=== PATIENT | female | born 1950 | race Caucasian/White ===

== ENCOUNTER 2016-05-20 12:36 | Emergency (ER) | payer MEDICARE ==
[~2016-05-20] VITALS: Ht 160 cm; Wt 70.9 kg
[~2016-05-20 12:36] MED LIST: PROCARDIA PO; PROZ10 PO; TRAZODONE HCL50 PO
[2016-05-20 16:53] VITALS: BP 147/98
== END 2016-05-20 16:53 | disposition left against medical advice (07) ==
LOC: ED 12:36
DX: Z53.21 Procedure and treatment not carried out due to patient leaving prior to being seen by health care provider (principal)

== ENCOUNTER 2016-05-21 10:11 | Emergency (ER) | payer MEDICARE ==
[~2016-05-21] VITALS: Ht 160 cm; Wt 71.2 kg
[2016-05-21 11:57] LABS: BASOPHIL % 0.7 % (0-2); PLATELET COUNT 298 x10^3mcL (130-400)
[2016-05-21 12:02] LABS: CALCIUM 9.3 mg/dL (8.5-10.1); CARBON DIOXIDE 27.7 mmol/L (21-32); CHLORIDE SERUM 105 mmol/L (98-107); CREATININE SERUM 0.6 mg/dL (0.6-1.0); GFR1 > 60 mL/min; GLUCOSE SERUM 106 mg/dL (74-106); POTASSIUM SERUM 3.3 mmol/L (3.5-5.1); SODIUM SERUM 142 mmol/L (136-145)
[2016-05-21 12:05] LABS: UA SPECIFIC GRAVITY >=1.030 (1.005-1.035); microscopic required? YES; urine erythrocyte TRACE (NEGATIVE)
[2016-05-21 12:05] LABS: RED CELL DISTRIBUTION WIDTH 19.6 % (11.5-14.5)
[2016-05-21 12:06] LABS: ALBUMIN 3.7 g/dL (3.4-5.0); ALKALINE PHOSPHATASE 85 U/L (46-116); ALT/SGPT 13 U/L (14-59); AST/SGOT 12 U/L (15-37); BILIRUBIN TOTAL 0.58 mg/dL (0.20-1.00); TOTAL PROTEIN, SERUM 7.7 g/dL (6.4-8.2)
[2016-05-21 12:22] LABS: AMPHETAMINE QUAL UR NONE DETECTED (NEG <=1000)
[2016-05-21 14:48] VITALS: BP 145/99
== END 2016-05-21 14:48 | disposition home or self-care (01) ==
LOC: ED 10:11
PROVIDERS: Emergency Medicine
DX: F41.9 Anxiety disorder, unspecified (principal); N39.0 Urinary tract infection, site not specified; Z88.8 Allergy status to other drugs, medicaments and biological substances; Z88.5 Allergy status to narcotic agent; Z79.899 Other long term (current) drug therapy; I10 Essential (primary) hypertension; F99 Mental disorder, not otherwise specified
CPT/HCPCS: 80307; 83880; 85378

== ENCOUNTER 2016-05-31 18:03 | Emergency (ER) | payer MEDICARE ==
[~2016-05-31] VITALS: Ht 160 cm; Wt 72.1 kg
[2016-05-31 19:03] VITALS: BP 152/83
== END 2016-05-31 19:03 | disposition home or self-care (01) ==
LOC: ED 18:03
DX: F41.9 Anxiety disorder, unspecified (principal); I10 Essential (primary) hypertension; E66.9 Obesity, unspecified; I48.2 Chronic atrial fibrillation; F32.9 Major depressive disorder, single episode, unspecified; G89.29 Other chronic pain; E78.00 Pure hypercholesterolemia, unspecified; G47.00 Insomnia, unspecified; M10.9 Gout, unspecified
CPT/HCPCS: J2060

== ENCOUNTER 2016-07-31 12:48 | Emergency (ER) | payer MEDICARE ==
[2016-07-31 15:31] VITALS: BP 125/98
== END 2016-07-31 15:31 | disposition home or self-care (01) ==
LOC: ED 12:48
DX: F41.9 Anxiety disorder, unspecified (principal); G89.29 Other chronic pain; M54.5 Low back pain; I48.91 Unspecified atrial fibrillation; M25.562 Pain in left knee; G47.00 Insomnia, unspecified; I10 Essential (primary) hypertension; E78.00 Pure hypercholesterolemia, unspecified; F32.9 Major depressive disorder, single episode, unspecified; Z76.0 Encounter for issue of repeat prescription

== ENCOUNTER 2016-09-13 18:16 | Emergency (ER) | payer MEDICARE ==
[~2016-09-13] VITALS: Ht 160 cm; Wt 68.5 kg
[2016-09-13 20:52] VITALS: BP 182/94
== END 2016-09-13 20:52 | disposition home or self-care (01) ==
LOC: ED 18:16
DX: M54.41 Lumbago with sciatica, right side (principal); I10 Essential (primary) hypertension; I48.91 Unspecified atrial fibrillation; F41.9 Anxiety disorder, unspecified; Z88.6 Allergy status to analgesic agent
CPT/HCPCS: J3010; Q0162

== ENCOUNTER 2016-10-09 15:00 | Emergency (ER) | payer MEDICARE ==
[~2016-10-09] VITALS: Ht 160 cm; Wt 68.5 kg
[2016-10-09 16:49] LABS: BASOPHIL % 0.9 % (0-2); PLATELET COUNT 311 x10^3mcL (130-400)
[2016-10-09 16:56] LABS: CALCIUM 9.1 mg/dL (8.5-10.1); CARBON DIOXIDE 23.6 mmol/L (21-32); CHLORIDE SERUM 104 mmol/L (98-107); CREATININE SERUM 0.5 mg/dL (0.6-1.0); GFR1 > 60 mL/min; GLUCOSE SERUM 95 mg/dL (74-106); POTASSIUM SERUM 3.2 mmol/L (3.5-5.1); SODIUM SERUM 140 mmol/L (136-145)
[2016-10-09 17:02] LABS: ALBUMIN 3.4 g/dL (3.4-5.0); ALKALINE PHOSPHATASE 87 U/L (46-116); ALT/SGPT 25 U/L (14-59); AST/SGOT 19 U/L (15-37); BILIRUBIN TOTAL 0.59 mg/dL (0.20-1.00); TOTAL PROTEIN, SERUM 7.4 g/dL (6.4-8.2)
[2016-10-09 17:16] LABS: AMPHETAMINE QUAL UR NONE DETECTED (NEG <=1000)
[2016-10-09 17:34] LABS: rbc morphology (normal/abnorm) ABNORMAL (NORMAL)
[2016-10-09 18:01] LABS: UA SPECIFIC GRAVITY 1.015 (1.005-1.035); microscopic required? YES; urine erythrocyte NEGATIVE (NEGATIVE)
[2016-10-09 23:01] VITALS: BP 144/86
== END 2016-10-09 23:01 ==
LOC: ED 15:00
PROVIDERS: Emergency Medicine
DX: T42.4X1A Poisoning by benzodiazepines, accidental (unintentional), initial encounter (principal); F41.9 Anxiety disorder, unspecified; F32.9 Major depressive disorder, single episode, unspecified; G89.29 Other chronic pain; E78.00 Pure hypercholesterolemia, unspecified; I48.91 Unspecified atrial fibrillation; M10.9 Gout, unspecified; M19.90 Unspecified osteoarthritis, unspecified site; Z87.440 Personal history of urinary (tract) infections; Z88.5 Allergy status to narcotic agent; Z88.6 Allergy status to analgesic agent; Z88.8 Allergy status to other drugs, medicaments and biological substances; Y92.89 Other specified places as the place of occurrence of the external cause
CPT/HCPCS: G0480; J7030

== ENCOUNTER 2017-01-24 21:23 | Emergency (ER) | payer MEDICARE ==
[2017-01-24 23:54] VITALS: BP 136/86
== END 2017-01-24 23:54 | disposition home or self-care (01) ==
LOC: ED 21:23
DX: F41.9 Anxiety disorder, unspecified (principal); I10 Essential (primary) hypertension; F32.9 Major depressive disorder, single episode, unspecified; E78.00 Pure hypercholesterolemia, unspecified; G47.00 Insomnia, unspecified; M19.90 Unspecified osteoarthritis, unspecified site; I48.91 Unspecified atrial fibrillation; M54.30 Sciatica, unspecified side; G89.29 Other chronic pain; M54.9 Dorsalgia, unspecified; M25.569 Pain in unspecified knee; Z88.8 Allergy status to other drugs, medicaments and biological substances; Z88.5 Allergy status to narcotic agent
CPT/HCPCS: J1170; J2250

== ENCOUNTER 2017-01-25 22:47 | Emergency (ER) | payer MEDICARE ==
[2017-01-26 00:56] VITALS: BP 163/95
== END 2017-01-26 00:56 | disposition home or self-care (01) ==
LOC: ED 22:47
DX: F41.9 Anxiety disorder, unspecified (principal); G89.29 Other chronic pain; M54.9 Dorsalgia, unspecified; M25.562 Pain in left knee; G47.00 Insomnia, unspecified; F32.9 Major depressive disorder, single episode, unspecified; E78.00 Pure hypercholesterolemia, unspecified; M54.30 Sciatica, unspecified side; I10 Essential (primary) hypertension; I48.91 Unspecified atrial fibrillation; M19.90 Unspecified osteoarthritis, unspecified site; Z88.5 Allergy status to narcotic agent; Z88.8 Allergy status to other drugs, medicaments and biological substances

== ENCOUNTER 2017-01-27 17:00 | Emergency (ER) | payer MEDICARE ==
[2017-01-27 20:01] VITALS: BP 166/109
== END 2017-01-27 20:01 | disposition home or self-care (01) ==
LOC: ED 17:00
DX: F41.9 Anxiety disorder, unspecified (principal); M79.671 Pain in right foot; E78.00 Pure hypercholesterolemia, unspecified; G47.00 Insomnia, unspecified; G89.29 Other chronic pain; M54.9 Dorsalgia, unspecified; M25.562 Pain in left knee; I48.91 Unspecified atrial fibrillation; M19.90 Unspecified osteoarthritis, unspecified site; M54.30 Sciatica, unspecified side; Z88.8 Allergy status to other drugs, medicaments and biological substances

== ENCOUNTER 2017-02-01 00:34 | Emergency (ER) | payer MEDICARE ==
[2017-02-01 04:24] VITALS: BP 173/111
== END 2017-02-01 04:24 | disposition home or self-care (01) ==
LOC: ED 00:34
DX: M79.671 Pain in right foot (principal); I10 Essential (primary) hypertension; E78.00 Pure hypercholesterolemia, unspecified; G47.00 Insomnia, unspecified; G89.29 Other chronic pain; M54.9 Dorsalgia, unspecified; I48.91 Unspecified atrial fibrillation; M54.30 Sciatica, unspecified side; M25.562 Pain in left knee; M10.9 Gout, unspecified; Z88.5 Allergy status to narcotic agent; Z88.8 Allergy status to other drugs, medicaments and biological substances

== ENCOUNTER 2017-02-14 18:09 | Emergency (ER) | payer MEDICARE ==
[~2017-02-14] VITALS: Ht 160 cm; Wt 68.0 kg
[2017-02-14 18:27] VITALS: Ht 160 cm; Wt 68.0 kg
[2017-02-14 19:17] VITALS: BP 147/116
== END 2017-02-14 19:17 | disposition home or self-care (01) ==
LOC: ED 18:09
DX: F41.9 Anxiety disorder, unspecified (principal)

== ENCOUNTER 2017-02-18 13:12 | Emergency (ER) | payer MEDICARE ==
[~2017-02-18] VITALS: Ht 160 cm; Wt 68.0 kg
[2017-02-18 13:41] VITALS: Ht 160 cm; Wt 68.0 kg
[2017-02-18 15:12] LABS: BASOPHIL % 0.5 % (0-2); PLATELET COUNT 302 x10^3mcL (130-400)
[2017-02-18 15:13] LABS: RED CELL DISTRIBUTION WIDTH 17.8 % (11.5-14.5)
[2017-02-18 15:21] LABS: ALBUMIN 3.8 g/dL (3.4-5.0); ALKALINE PHOSPHATASE 82 U/L (46-116); ALT/SGPT 12 U/L (14-59); AST/SGOT 9 U/L (15-37); BILIRUBIN TOTAL 0.9 mg/dL (0.20-1.00); CARBON DIOXIDE 28.3 mmol/L (21-32); CHLORIDE SERUM 103 mmol/L (98-107); CREATININE SERUM 0.7 mg/dL (0.6-1.0); GFR1 > 60 mL/min; GLUCOSE SERUM 120 mg/dL (74-106); LIPASE 147 IU/L (73-393); POTASSIUM SERUM 3.2 mmol/L (3.5-5.1); SODIUM SERUM 142 mmol/L (136-145); TOTAL PROTEIN, SERUM 8.1 g/dL (6.4-8.2)
[2017-02-18 16:42] VITALS: BP 126/74
== END 2017-02-18 16:51 | disposition home or self-care (01) ==
LOC: ED 13:12
PROVIDERS: Emergency Medicine
DX: N39.0 Urinary tract infection, site not specified (principal); I10 Essential (primary) hypertension; I48.91 Unspecified atrial fibrillation; M19.90 Unspecified osteoarthritis, unspecified site; G89.29 Other chronic pain; Z87.19 Personal history of other diseases of the digestive system; Z88.6 Allergy status to analgesic agent; Z88.8 Allergy status to other drugs, medicaments and biological substances
CPT/HCPCS: J1170; J2060; J7030; Q0162

== ENCOUNTER 2017-03-03 21:44 | Emergency (ER) | payer MEDICARE ==
[2017-03-03 23:57] VITALS: BP 130/86
== END 2017-03-03 23:57 | disposition home or self-care (01) ==
LOC: ED 21:44
DX: F41.9 Anxiety disorder, unspecified (principal); G89.29 Other chronic pain; E78.00 Pure hypercholesterolemia, unspecified; I48.91 Unspecified atrial fibrillation; M19.90 Unspecified osteoarthritis, unspecified site; Z88.9 Allergy status to unspecified drugs, medicaments and biological substances; Z88.6 Allergy status to analgesic agent; Z88.5 Allergy status to narcotic agent
CPT/HCPCS: J0515; J1200; J1630; J2060

== ENCOUNTER 2017-03-10 16:34 | Emergency (ER) | payer MEDICARE ==
[~2017-03-10] VITALS: Ht 160 cm; Wt 68.0 kg
[2017-03-10 17:41] VITALS: BP 148/99
== END 2017-03-10 17:45 | disposition home or self-care (01) ==
LOC: ED 16:34
DX: F41.9 Anxiety disorder, unspecified (principal); I10 Essential (primary) hypertension; F32.9 Major depressive disorder, single episode, unspecified; G89.29 Other chronic pain; M54.9 Dorsalgia, unspecified; M25.569 Pain in unspecified knee; E78.00 Pure hypercholesterolemia, unspecified; I48.91 Unspecified atrial fibrillation; M10.9 Gout, unspecified; M19.90 Unspecified osteoarthritis, unspecified site; Z88.8 Allergy status to other drugs, medicaments and biological substances; Z88.6 Allergy status to analgesic agent; Z88.5 Allergy status to narcotic agent

== ENCOUNTER 2017-05-12 07:55 | Emergency (ER) | payer MEDICARE ==
[~2017-05-12] VITALS: Ht 160 cm; Wt 65.8 kg
[2017-05-12 08:02] VITALS: Ht 160 cm; Wt 65.8 kg
[2017-05-12 08:46] VITALS: BP 142/61
== END 2017-05-12 08:46 | disposition home or self-care (01) ==
LOC: ED 07:55
DX: M54.31 Sciatica, right side (principal); I10 Essential (primary) hypertension; E78.00 Pure hypercholesterolemia, unspecified; I48.91 Unspecified atrial fibrillation; G89.29 Other chronic pain; M10.9 Gout, unspecified; M19.90 Unspecified osteoarthritis, unspecified site; Z87.440 Personal history of urinary (tract) infections; Z88.5 Allergy status to narcotic agent; Z88.6 Allergy status to analgesic agent; Z88.4 Allergy status to anesthetic agent; Z88.8 Allergy status to other drugs, medicaments and biological substances
CPT/HCPCS: J3010

== ENCOUNTER 2017-06-14 22:17 | Emergency (ER) | payer MEDICARE ==
[~2017-06-14] VITALS: Ht 160 cm; Wt 66.2 kg
[2017-06-14 22:32] VITALS: Ht 160 cm; Wt 66.2 kg
[2017-06-15 03:40] VITALS: BP 141/95
== END 2017-06-15 03:40 | disposition short-term general hospital (02) ==
LOC: ED 22:17
DX: F41.9 Anxiety disorder, unspecified (principal); I10 Essential (primary) hypertension; E78.00 Pure hypercholesterolemia, unspecified; I48.91 Unspecified atrial fibrillation; G89.29 Other chronic pain; Z88.8 Allergy status to other drugs, medicaments and biological substances; Z88.5 Allergy status to narcotic agent; Z90.49 Acquired absence of other specified parts of digestive tract; Z90.710 Acquired absence of both cervix and uterus

== ENCOUNTER 2017-08-04 14:55 | Emergency (ER) | payer MEDICARE ==
[~2017-08-04] VITALS: Ht 160 cm; Wt 68.2 kg
[2017-08-04 15:08] VITALS: Ht 160 cm; Wt 68.2 kg
[2017-08-04 19:19] LABS: BASOPHIL % 0.2 % (0-2); PLATELET COUNT 326 x10^3mcL (130-400)
[2017-08-04 19:20] LABS: RED CELL DISTRIBUTION WIDTH 16.6 % (11.5-14.5)
[2017-08-04 19:22] LABS: ALBUMIN 3.7 g/dL (3.4-5.0); ALKALINE PHOSPHATASE 109 U/L (46-116); ALT/SGPT 12 U/L (14-59); AST/SGOT 16 U/L (15-37); BILIRUBIN TOTAL 0.7 mg/dL (0.20-1.00); CALCIUM 9.4 mg/dL (8.5-10.1); CARBON DIOXIDE 31.1 mmol/L (21-32); CHLORIDE SERUM 103 mmol/L (98-107); CREATININE SERUM 0.6 mg/dL (0.6-1.0); GFR1 > 60 mL/min; GLUCOSE SERUM 102 mg/dL (74-106); SODIUM SERUM 144 mmol/L (136-145); TOTAL PROTEIN, SERUM 8.1 g/dL (6.4-8.2)
[2017-08-04 19:26] LABS: POTASSIUM SERUM 2.7 mmol/L (3.5-5.1)
[2017-08-05] MEDS ORDERED: REMERON30 MG PO (04:23)
[2017-08-05 06:35] VITALS: BP 147/76
== END 2017-08-05 06:35 | disposition short-term general hospital (02) ==
LOC: ED 14:55
PROVIDERS: Emergency Medicine
DX: F41.9 Anxiety disorder, unspecified (principal); E87.6 Hypokalemia; F32.9 Major depressive disorder, single episode, unspecified; E78.00 Pure hypercholesterolemia, unspecified; I48.91 Unspecified atrial fibrillation
CPT/HCPCS: 83880; J2060; J2405; J3010; J3475; J3480; J7030; Q9967

== ENCOUNTER 2017-10-02 19:12 | Emergency (ER) | payer MEDICARE ==
[~2017-10-02] VITALS: Ht 167.6 cm; Wt 70.8 kg
[~2017-10-02 19:12] MED LIST changes: +REMERON30 MG PO
[2017-10-02 19:22] VITALS: Ht 167.6 cm; Wt 70.8 kg
[2017-10-02 20:11] LABS: BASOPHIL % 0.5 % (0-2); PLATELET COUNT 326 x10^3mcL (130-400)
[2017-10-02 20:15] LABS: ALBUMIN 3.6 g/dL (3.4-5.0); ALKALINE PHOSPHATASE 102 U/L (46-116); ALT/SGPT 14 U/L (14-59); AST/SGOT 15 U/L (15-37); BILIRUBIN TOTAL 0.6 mg/dL (0.20-1.00); CALCIUM 9.1 mg/dL (8.5-10.1); CARBON DIOXIDE 25.9 mmol/L (21-32); CHLORIDE SERUM 103 mmol/L (98-107); CREATININE SERUM 0.6 mg/dL (0.6-1.0); GFR1 > 60 mL/min; GLUCOSE SERUM 123 mg/dL (74-106); RED CELL DISTRIBUTION WIDTH 17.9 % (11.5-14.5); SODIUM SERUM 141 mmol/L (136-145); TOTAL PROTEIN, SERUM 7.6 g/dL (6.4-8.2)
[2017-10-02 20:17] LABS: POTASSIUM SERUM 2.9 mmol/L (3.5-5.1)
[2017-10-03 00:28] LABS: AMPHETAMINE QUAL UR NONE DETECTED (See below)
[2017-10-03 02:38] VITALS: BP 133/94
== END 2017-10-03 02:10 | disposition short-term general hospital (02) ==
LOC: ED 19:12
PROVIDERS: Emergency Medicine
DX: R07.89 Other chest pain (principal); N39.0 Urinary tract infection, site not specified; E87.6 Hypokalemia; R11.0 Nausea; F41.9 Anxiety disorder, unspecified; I10 Essential (primary) hypertension; Z90.49 Acquired absence of other specified parts of digestive tract; Z90.710 Acquired absence of both cervix and uterus
CPT/HCPCS: 83880; 85378; J0696; J1200; J2060; J2270; J3010; Q9967

== ENCOUNTER 2017-11-30 11:42 | Emergency (ER) | payer MEDICARE ==
[~2017-11-30] VITALS: Ht 160 cm; Wt 68.9 kg
[2017-11-30 11:52] VITALS: Ht 160 cm; Wt 68.9 kg
[2017-11-30 12:28] LABS: PLATELET COUNT 285 x10^3mcL (130-400)
[2017-11-30 12:30] LABS: RED CELL DISTRIBUTION WIDTH 16.5 % (11.5-14.5)
[2017-11-30 12:47] LABS: ALBUMIN 3.7 g/dL (3.4-5.0); ALKALINE PHOSPHATASE 98 U/L (46-116); ALT/SGPT 15 U/L (14-59); AST/SGOT 16 U/L (15-37); BILIRUBIN TOTAL 0.5 mg/dL (0.20-1.00); CARBON DIOXIDE 23.4 mmol/L (21-32); CHLORIDE SERUM 100 mmol/L (98-107); CREATININE SERUM 0.6 mg/dL (0.6-1.0); GFR1 > 60 mL/min; GLUCOSE SERUM 137 mg/dL (74-106); LIPASE 135 IU/L (73-393); POTASSIUM SERUM 3.1 mmol/L (3.5-5.1); SODIUM SERUM 136 mmol/L (136-145); TOTAL PROTEIN, SERUM 8.2 g/dL (6.4-8.2)
[2017-11-30 12:52] LABS: CALCIUM 9.1 mg/dL (8.5-10.1)
[2017-11-30 12:58] LABS: BAND NEUTROPHIL 0 % (0-10); BASOPHIL 0 % (0-2); MONOCYTE 3 % (0-7); SEGMENTED NEUTROPHILS 81 % (37-75)
[2017-11-30 12:59] LABS: rbc morphology (normal/abnorm) NORMAL (NORMAL)
[2017-11-30 14:22] VITALS: BP 140/94
== END 2017-11-30 14:22 | disposition home or self-care (01) ==
LOC: ED 11:42
PROVIDERS: Emergency Medicine
DX: F32.9 Major depressive disorder, single episode, unspecified (principal); K29.70 Gastritis, unspecified, without bleeding; I10 Essential (primary) hypertension; F41.9 Anxiety disorder, unspecified; E78.00 Pure hypercholesterolemia, unspecified; Z90.49 Acquired absence of other specified parts of digestive tract; Z90.89 Acquired absence of other organs; Z98.890 Other specified postprocedural states; G89.29 Other chronic pain; Z88.1 Allergy status to other antibiotic agents; Z88.6 Allergy status to analgesic agent
CPT/HCPCS: 36415; Q0092

== ENCOUNTER 2017-12-16 10:26 | Emergency (ER) | payer MEDICARE ==
[~2017-12-16] VITALS: Ht 160 cm; Wt 68.0 kg
[2017-12-16 10:30] VITALS: Ht 160 cm; Wt 68.0 kg
[2017-12-16 11:04] LABS: BASOPHIL % 1.2 % (0-2); PLATELET COUNT 325 x10^3mcL (130-400); RED CELL DISTRIBUTION WIDTH 16.8 % (11.5-14.5)
[2017-12-16 11:16] LABS: CALCIUM 9.6 mg/dL (8.5-10.1); CARBON DIOXIDE 27.1 mmol/L (21-32); CHLORIDE SERUM 102 mmol/L (98-107); CREATININE SERUM 0.7 mg/dL (0.6-1.0); GFR1 > 60 mL/min; GLUCOSE SERUM 144 mg/dL (74-106); POTASSIUM SERUM 3.9 mmol/L (3.5-5.1); SODIUM SERUM 140 mmol/L (136-145)
[2017-12-16 13:13] VITALS: BP 170/87
== END 2017-12-16 13:13 | disposition short-term general hospital (02) ==
LOC: ED 10:26
PROVIDERS: Emergency Medicine
DX: G40.802 Other epilepsy, not intractable, without status epilepticus (principal); I10 Essential (primary) hypertension; F41.9 Anxiety disorder, unspecified; F32.9 Major depressive disorder, single episode, unspecified; G89.29 Other chronic pain; M19.90 Unspecified osteoarthritis, unspecified site; E78.00 Pure hypercholesterolemia, unspecified; Z90.49 Acquired absence of other specified parts of digestive tract; Z90.89 Acquired absence of other organs; Z90.710 Acquired absence of both cervix and uterus; Z98.890 Other specified postprocedural states; Z88.6 Allergy status to analgesic agent; Z88.8 Allergy status to other drugs, medicaments and biological substances
CPT/HCPCS: J2060; J3475; J7030; Q0092; Q0163

== ENCOUNTER 2018-01-16 09:36 | Emergency (ER) | payer MEDICARE ==
[~2018-01-16] VITALS: Ht 157.5 cm; Wt 70.8 kg
[2018-01-16 09:42] VITALS: BP 142/102
[2018-01-16 10:58] LABS: BASOPHIL % 0.2 % (0-2); PLATELET COUNT 326 x10^3mcL (130-400)
[2018-01-16 11:26] LABS: CALCIUM 9.5 mg/dL (8.5-10.1); CARBON DIOXIDE 23.9 mmol/L (21-32); CHLORIDE SERUM 100 mmol/L (98-107); CREATININE SERUM 0.7 mg/dL (0.6-1.0); GFR1 > 60 mL/min; GLUCOSE SERUM 141 mg/dL (74-106); POTASSIUM SERUM 3.4 mmol/L (3.5-5.1); SODIUM SERUM 136 mmol/L (136-145)
[2018-01-16 11:30] LABS: AMPHETAMINE QUAL UR NONE DETECTED (See below)
[2018-01-16 11:39] LABS: ALBUMIN 3.6 g/dL (3.4-5.0); ALKALINE PHOSPHATASE 121 U/L (46-116); ALT/SGPT 25 U/L (14-59); AMYLASE 32 U/L (25-115); AST/SGOT 23 U/L (15-37); BILIRUBIN TOTAL 0.9 mg/dL (0.20-1.00); CHOLESTEROL 182 mg/dL (<200); HDL CHOLESTEROL 55 mg/dL (40-60); LIPASE 113 IU/L (73-393); T4(THYROXINE) 6.5 ug/dL (4.7-13.3)
[2018-01-16 11:42] LABS: TOTAL PROTEIN, SERUM 8.3 g/dL (6.4-8.2)
== END 2018-01-16 11:45 | disposition left against medical advice (07) ==
LOC: ED 09:36
PROVIDERS: Emergency Medicine
DX: F41.9 Anxiety disorder, unspecified (principal); R07.89 Other chest pain; J44.9 Chronic obstructive pulmonary disease, unspecified; I10 Essential (primary) hypertension; E78.00 Pure hypercholesterolemia, unspecified; I45.10 Unspecified right bundle-branch block; F32.9 Major depressive disorder, single episode, unspecified; G89.29 Other chronic pain; M19.90 Unspecified osteoarthritis, unspecified site; Z98.890 Other specified postprocedural states; Z90.49 Acquired absence of other specified parts of digestive tract; Z90.89 Acquired absence of other organs; Z90.710 Acquired absence of both cervix and uterus; Z88.5 Allergy status to narcotic agent
CPT/HCPCS: 83880; G0480; J1630; J2060; Q0092

== ENCOUNTER 2018-02-19 19:10 | Emergency (ER) | payer MEDICARE ==
[~2018-02-19] VITALS: Ht 160 cm; Wt 68.9 kg
[2018-02-19 19:27] VITALS: Ht 160 cm; Wt 68.9 kg
[2018-02-19 20:00] LABS: BASOPHIL % 0.3 % (0-2); PLATELET COUNT 316 x10^3mcL (130-400)
[2018-02-19 20:05] LABS: RED CELL DISTRIBUTION WIDTH 16.1 % (11.5-14.5)
[2018-02-19 20:15] LABS: ALBUMIN 3.4 g/dL (3.4-5.0); ALKALINE PHOSPHATASE 108 U/L (46-116); ALT/SGPT 13 U/L (14-59); AST/SGOT 14 U/L (15-37); BILIRUBIN TOTAL 0.64 mg/dL (0.20-1.00); CALCIUM 8.8 mg/dL (8.5-10.1); CARBON DIOXIDE 28.1 mmol/L (21-32); CHLORIDE SERUM 102 mmol/L (98-107); CHOLESTEROL 139 mg/dL (<200); CREATININE SERUM 0.5 mg/dL (0.6-1.0); GFR1 > 60 mL/min; GLUCOSE SERUM 113 mg/dL (74-106); HDL CHOLESTEROL 49 mg/dL (40-60); LIPASE 97 IU/L (73-393); SODIUM SERUM 141 mmol/L (136-145); TOTAL PROTEIN, SERUM 7.4 g/dL (6.4-8.2)
[2018-02-19 20:23] LABS: AMYLASE 24 U/L (25-115); POTASSIUM SERUM 2.6 mmol/L (3.5-5.1)
[2018-02-20 00:36] VITALS: BP 162/106
== END 2018-02-20 00:36 | disposition short-term general hospital (02) ==
LOC: ED 19:10
PROVIDERS: Emergency Medicine
DX: I45.10 Unspecified right bundle-branch block (principal); J44.9 Chronic obstructive pulmonary disease, unspecified; E78.00 Pure hypercholesterolemia, unspecified; E87.6 Hypokalemia; F41.9 Anxiety disorder, unspecified; I10 Essential (primary) hypertension; M54.40 Lumbago with sciatica, unspecified side; I48.91 Unspecified atrial fibrillation; G47.00 Insomnia, unspecified; M19.90 Unspecified osteoarthritis, unspecified site; Z90.49 Acquired absence of other specified parts of digestive tract; Z90.710 Acquired absence of both cervix and uterus; Z90.89 Acquired absence of other organs; Z88.8 Allergy status to other drugs, medicaments and biological substances; Z88.5 Allergy status to narcotic agent; Z88.6 Allergy status to analgesic agent
CPT/HCPCS: 83880; J2060; J3480; J7030; Q0092

== ENCOUNTER 2018-02-23 16:37 | Emergency (ER) | payer OTHER ==
[~2018-02-23] VITALS: Ht 160 cm; Wt 68.9 kg
[2018-02-23 16:48] VITALS: Ht 160 cm; Wt 68.9 kg
[2018-02-23 19:29] LABS: BASOPHIL % 0.5 % (0-2); PLATELET COUNT 347 x10^3mcL (130-400); RED CELL DISTRIBUTION WIDTH 16.8 % (11.5-14.5)
[2018-02-23 19:36] LABS: CARBON DIOXIDE 28.9 mmol/L (21-32); CHLORIDE SERUM 102 mmol/L (98-107); CREATININE SERUM 0.7 mg/dL (0.6-1.0); GFR1 > 60 mL/min; GLUCOSE SERUM 93 mg/dL (74-106); POTASSIUM SERUM 3.1 mmol/L (3.5-5.1); SODIUM SERUM 140 mmol/L (136-145)
[2018-02-23 20:02] LABS: ALBUMIN 3.7 g/dL (3.4-5.0); ALKALINE PHOSPHATASE 100 U/L (46-116); ALT/SGPT 12 U/L (14-59); AST/SGOT 16 U/L (15-37); BILIRUBIN TOTAL 0.67 mg/dL (0.20-1.00); TOTAL PROTEIN, SERUM 8.1 g/dL (6.4-8.2)
[2018-02-23 20:33] VITALS: BP 136/81
== END 2018-02-23 20:33 | disposition home or self-care (01) ==
LOC: ED 16:37
PROVIDERS: Emergency Medicine
DX: F41.9 Anxiety disorder, unspecified (principal); I10 Essential (primary) hypertension; F32.9 Major depressive disorder, single episode, unspecified; G89.29 Other chronic pain; M10.9 Gout, unspecified; M19.90 Unspecified osteoarthritis, unspecified site; Z98.890 Other specified postprocedural states; Z88.8 Allergy status to other drugs, medicaments and biological substances; Z88.6 Allergy status to analgesic agent
CPT/HCPCS: 36415

== ENCOUNTER 2018-04-11 18:17 | Emergency (ER) | payer OTHER ==
[~2018-04-11] VITALS: Ht 160 cm; Wt 70.8 kg
[2018-04-11 18:24] VITALS: BP 134/77; Ht 160 cm; Wt 70.8 kg
== END 2018-04-11 20:06 | disposition home or self-care (01) ==
LOC: ED 18:17
DX: F41.0 Panic disorder [episodic paroxysmal anxiety] (principal); Z88.8 Allergy status to other drugs, medicaments and biological substances; F32.9 Major depressive disorder, single episode, unspecified; I10 Essential (primary) hypertension; G89.29 Other chronic pain; E78.00 Pure hypercholesterolemia, unspecified; I48.91 Unspecified atrial fibrillation; Z98.890 Other specified postprocedural states; Z90.49 Acquired absence of other specified parts of digestive tract; Z90.89 Acquired absence of other organs; Z90.710 Acquired absence of both cervix and uterus
CPT/HCPCS: J2060

== ENCOUNTER 2018-05-21 14:27 | Emergency (ER) | payer OTHER ==
[~2018-05-21] VITALS: Ht 160 cm; Wt 220.0 kg
[2018-05-21 14:34] VITALS: Ht 160 cm; Wt 220.0 kg
[2018-05-21 15:55] LABS: CALCIUM 8.9 mg/dL (8.5-10.1); CARBON DIOXIDE 25.9 mmol/L (21-32); CHLORIDE SERUM 100 mmol/L (98-107); CREATININE SERUM 0.6 mg/dL (0.6-1.0); GFR1 > 60 mL/min; GLUCOSE SERUM 116 mg/dL (74-106); POTASSIUM SERUM 3.1 mmol/L (3.5-5.1); SODIUM SERUM 137 mmol/L (136-145)
[2018-05-21 16:00] LABS: ALBUMIN 3.4 g/dL (3.4-5.0); ALKALINE PHOSPHATASE 104 U/L (46-116); ALT/SGPT 16 U/L (14-59); AST/SGOT 19 U/L (15-37); BILIRUBIN TOTAL 0.9 mg/dL (0.20-1.00); TOTAL PROTEIN, SERUM 7.5 g/dL (6.4-8.2)
[2018-05-21 18:17] VITALS: BP 143/90
== END 2018-05-21 18:17 | disposition home or self-care (01) ==
LOC: ED 14:27
PROVIDERS: Emergency Medicine
DX: F41.9 Anxiety disorder, unspecified (principal); F13.239 Sedative, hypnotic or anxiolytic dependence with withdrawal, unspecified; I10 Essential (primary) hypertension; F32.9 Major depressive disorder, single episode, unspecified; G89.29 Other chronic pain; E78.00 Pure hypercholesterolemia, unspecified; I48.91 Unspecified atrial fibrillation; M19.90 Unspecified osteoarthritis, unspecified site; Z90.710 Acquired absence of both cervix and uterus; Z90.89 Acquired absence of other organs; Z90.49 Acquired absence of other specified parts of digestive tract; Z88.8 Allergy status to other drugs, medicaments and biological substances
CPT/HCPCS: 36415; G0480

== ENCOUNTER 2018-07-17 20:47 | Observation (INO) | payer OTHER ==
[~2018-07-17] VITALS: Ht 160 cm; Wt 65.4 kg
[2018-07-17 20:55] VITALS: Ht 160 cm; Wt 65.4 kg
[2018-07-17 21:37] LABS: BASOPHIL % 0.3 % (0-2); PLATELET COUNT 375 x10^3mcL (130-400)
[2018-07-17 21:38] LABS: RED CELL DISTRIBUTION WIDTH 18.5 % (11.5-14.5)
[2018-07-17 21:46] LABS: CALCIUM 9.3 mg/dL (8.5-10.1); CARBON DIOXIDE 26.3 mmol/L (21-32); CHLORIDE SERUM 103 mmol/L (98-107); CREATININE SERUM 0.5 mg/dL (0.6-1.0); GFR1 > 60 mL/min; GLUCOSE SERUM 109 mg/dL (74-106); SODIUM SERUM 140 mmol/L (136-145)
[2018-07-17 21:57] LABS: ALKALINE PHOSPHATASE 113 U/L (46-116); ALT/SGPT 12 U/L (14-59); AST/SGOT 11 U/L (15-37); BILIRUBIN TOTAL 0.51 mg/dL (0.20-1.00); TOTAL PROTEIN, SERUM 7.1 g/dL (6.4-8.2)
[2018-07-17 22:04] LABS: ALBUMIN 3.2 g/dL (3.4-5.0)
[2018-07-18] MEDS ORDERED: DILTIAZEM HCL90 M1 PO (00:22)
[2018-07-18] MEDS ORDERED: CYMBALTA20 M1 PO (00:23)
[2018-07-18] MEDS ORDERED: SYNTHROID0.05 MG (00:25)
[2018-07-18] MEDS ORDERED: PRADAXA75 M1 PO (00:26)
[2018-07-18 01:52] VITALS: BP 158/77
[2018-07-18 04:16] VITALS: BP 150/69
[2018-07-18 07:34] LABS: CALCIUM 8.8 mg/dL (8.5-10.1); CARBON DIOXIDE 30.2 mmol/L (21-32); CHLORIDE SERUM 104 mmol/L (98-107); CREATININE SERUM 0.5 mg/dL (0.6-1.0); GFR1 > 60 mL/min; GLUCOSE SERUM 91 mg/dL (74-106); POTASSIUM SERUM 3.1 mmol/L (3.5-5.1); SODIUM SERUM 142 mmol/L (136-145)
[2018-07-18 07:59] LABS: BASOPHIL % 0.3 % (0-2); PLATELET COUNT 301 x10^3mcL (130-400)
[2018-07-18 08:00] LABS: RED CELL DISTRIBUTION WIDTH 17.8 % (11.5-14.5)
[2018-07-18 09:46] VITALS: BP 90/55
[2018-07-18] MEDS ORDERED: LISINOPRIL40 MG PO (16:01)
[2018-07-18] MEDS ORDERED: NOR10T PO (16:02)
[2018-07-18] MEDS ORDERED: VALIUM2 MG PO (16:02)
[2018-07-18 17:16] VITALS: BP 140/77
[2018-07-18 21:02] VITALS: BP 127/65
[2018-07-19 05:50] VITALS: BP 137/68
[2018-07-19 06:25] LABS: BASOPHIL % 0.3 % (0-2); PLATELET COUNT 281 x10^3mcL (130-400)
[2018-07-19 06:37] LABS: CALCIUM 9.3 mg/dL (8.5-10.1); CARBON DIOXIDE 32.3 mmol/L (21-32); CHLORIDE SERUM 103 mmol/L (98-107); CREATININE SERUM 0.6 mg/dL (0.6-1.0); GFR1 > 60 mL/min; GLUCOSE SERUM 89 mg/dL (74-106); MAGNESIUM 1.4 mg/dL (1.8-2.4); POTASSIUM SERUM 3.9 mmol/L (3.5-5.1); RED CELL DISTRIBUTION WIDTH 18.8 % (11.5-14.5); SODIUM SERUM 139 mmol/L (136-145)
[2018-07-19 09:01] VITALS: BP 93/48
[2018-07-19] MEDS ORDERED: CIPRO500 MG PO (15:30)
[2018-07-19] MEDS ORDERED: FLA500 PO (15:30)
[2018-07-19 16:35] VITALS: BP 100/50
[2018-07-19 16:39] VITALS: BP 124/64
[2018-07-19 20:00] VITALS: BP 112/67
[2018-07-20 05:21] VITALS: BP 151/79
[2018-07-20 07:49] LABS: BASOPHIL % 0.4 % (0-2); PLATELET COUNT 255 x10^3mcL (130-400); RED CELL DISTRIBUTION WIDTH 18.4 % (11.5-14.5)
[2018-07-20 08:00] LABS: CALCIUM 9.3 mg/dL (8.5-10.1); CARBON DIOXIDE 28.7 mmol/L (21-32); CHLORIDE SERUM 104 mmol/L (98-107); CREATININE SERUM 0.5 mg/dL (0.6-1.0); GFR1 > 60 mL/min; GLUCOSE SERUM 102 mg/dL (74-106); MAGNESIUM 1.6 mg/dL (1.8-2.4); SODIUM SERUM 142 mmol/L (136-145)
[2018-07-20 08:09] VITALS: BP 122/61
[2018-07-20 08:31] VITALS: BP 131/87
[2018-07-20 12:09] VITALS: BP 110/69
[2018-07-21 08:13] LABS: CARBOHYDRATE AG 19-9 1 U/mL (0-35)
== END 2018-07-20 14:46 | disposition home or self-care (01) | DRG 392 ==
LOC: ED 20:47 → MU 07-18 00:59
PROVIDERS: ADMIT Internal Medicine Pulmonary Disease
DX: K52.9 Noninfective gastroenteritis and colitis, unspecified (principal); K86.89 Other specified diseases of pancreas; R10.9 Unspecified abdominal pain; E86.9 Volume depletion, unspecified; I48.91 Unspecified atrial fibrillation; M54.9 Dorsalgia, unspecified; G89.29 Other chronic pain; I10 Essential (primary) hypertension
CPT/HCPCS: 87046; 87046-59; G0378; J0744; J1170; J2270; J2405; J3490; J7040

== ENCOUNTER 2018-07-24 22:25 | Emergency (ER) | payer OTHER ==
[~2018-07-24] VITALS: Ht 160 cm; Wt 66.2 kg
[~2018-07-24 22:25] MED LIST changes: +CIPRO500 MG PO; +CYMBALTA20 M1 PO; +DILTIAZEM HCL90 M1 PO; +FLA500 PO; +LISINOPRIL40 MG PO; +NOR10T PO; +PRADAXA75 M1 PO; +SYNTHROID0.05 MG; +VALIUM2 MG PO
[2018-07-24 23:03] VITALS: Ht 160 cm; Wt 66.2 kg
[2018-07-25 01:27] VITALS: BP 125/85
== END 2018-07-25 00:54 | disposition home or self-care (01) ==
LOC: ED 22:25
DX: I80.3 Phlebitis and thrombophlebitis of lower extremities, unspecified (principal); I10 Essential (primary) hypertension; F41.9 Anxiety disorder, unspecified; F32.9 Major depressive disorder, single episode, unspecified; G89.29 Other chronic pain; E78.00 Pure hypercholesterolemia, unspecified; I48.91 Unspecified atrial fibrillation; M19.90 Unspecified osteoarthritis, unspecified site; Z90.710 Acquired absence of both cervix and uterus; Z90.49 Acquired absence of other specified parts of digestive tract; Z90.89 Acquired absence of other organs; Z98.890 Other specified postprocedural states; Z88.8 Allergy status to other drugs, medicaments and biological substances
CPT/HCPCS: Q0092

== ENCOUNTER 2018-07-28 02:39 | Emergency (ER) | payer OTHER ==
[~2018-07-28] VITALS: Ht 160 cm; Wt 65.3 kg
[2018-07-28 02:40] VITALS: Ht 160 cm; Wt 65.3 kg
[2018-07-28 07:21] LABS: CALCIUM 9.1 mg/dL (8.5-10.1); CARBON DIOXIDE 30.8 mmol/L (21-32); CHLORIDE SERUM 105 mmol/L (98-107); CREATININE SERUM 0.6 mg/dL (0.6-1.0); GFR1 > 60 mL/min; GLUCOSE SERUM 115 mg/dL (74-106); POTASSIUM SERUM 3.3 mmol/L (3.5-5.1); SODIUM SERUM 141 mmol/L (136-145)
[2018-07-28 07:23] LABS: BASOPHIL % 0.6 % (0-2); PLATELET COUNT 365 x10^3mcL (130-400)
[2018-07-28 07:26] LABS: ALKALINE PHOSPHATASE 86 U/L (46-116); ALT/SGPT 25 U/L (14-59); AST/SGOT 22 U/L (15-37); BILIRUBIN TOTAL 0.7 mg/dL (0.20-1.00); LIPASE 78 IU/L (73-393)
[2018-07-28 07:28] LABS: ALBUMIN 3.3 g/dL (3.4-5.0)
[2018-07-28 07:39] LABS: RED CELL DISTRIBUTION WIDTH 17.7 % (11.5-14.5)
[2018-07-28 09:09] VITALS: BP 136/76
== END 2018-07-28 09:09 | disposition home or self-care (01) ==
LOC: ED 02:39
PROVIDERS: Emergency Medicine
DX: R10.13 Epigastric pain (principal); G89.29 Other chronic pain; M54.9 Dorsalgia, unspecified; I10 Essential (primary) hypertension; F41.9 Anxiety disorder, unspecified; F32.9 Major depressive disorder, single episode, unspecified; Z88.8 Allergy status to other drugs, medicaments and biological substances; Z88.9 Allergy status to unspecified drugs, medicaments and biological substances
CPT/HCPCS: 36415; J2270; Q0162

== ENCOUNTER 2018-08-21 08:01 | Observation (INO) | payer OTHER ==
[~2018-08-21] VITALS: Ht 160 cm; Wt 63.5 kg
[2018-08-21 08:08] VITALS: Ht 160 cm; Wt 63.5 kg
[2018-08-21 08:59] LABS: BASOPHIL % 0.3 % (0-2); PLATELET COUNT 266 x10^3mcL (130-400)
[2018-08-21 09:44] LABS: CARBON DIOXIDE 25.6 mmol/L (21-32); CHLORIDE SERUM 104 mmol/L (98-107); CREATININE SERUM 0.5 mg/dL (0.6-1.0); GFR1 > 60 mL/min; GLUCOSE SERUM 123 mg/dL (74-106); POTASSIUM SERUM 3.3 mmol/L (3.5-5.1); SODIUM SERUM 144 mmol/L (136-145)
[2018-08-21 09:52] LABS: ALBUMIN 3.6 g/dL (3.4-5.0); ALKALINE PHOSPHATASE 108 U/L (46-116); ALT/SGPT 18 U/L (14-59); AST/SGOT 16 U/L (15-37); BILIRUBIN TOTAL 0.67 mg/dL (0.20-1.00); LIPASE 59 IU/L (73-393)
[2018-08-21 11:52] LABS: UA SPECIFIC GRAVITY 1.015 (1.005-1.035); microscopic required? YES; urine erythrocyte NEGATIVE (NEGATIVE)
[2018-08-21 13:26] VITALS: BP 175/89
[2018-08-21 15:50] VITALS: BP 168/94
[2018-08-21 20:52] VITALS: BP 145/77
[2018-08-22 05:02] VITALS: BP 105/52
[2018-08-22 08:33] VITALS: BP 128/65
[2018-08-22 11:04] VITALS: BP 128/65
[2018-08-22 12:01] VITALS: BP 116/60
== END 2018-08-22 13:51 | disposition home or self-care (01) | DRG 392 ==
LOC: ED 08:01 → MU 12:16
PROVIDERS: Emergency Medicine; ADMIT Internal Medicine Pulmonary Disease
DX: R19.00 Intra-abdominal and pelvic swelling, mass and lump, unspecified site (principal); E87.6 Hypokalemia; I48.2 Chronic atrial fibrillation; I10 Essential (primary) hypertension; Z68.23 Body mass index [BMI] 23.0-23.9, adult
CPT/HCPCS: G0378; J0696; J1170; J2270; J2405; J7030; Q0162

== ENCOUNTER 2018-09-07 19:48 | Emergency (ER) | payer OTHER ==
[~2018-09-07] VITALS: Ht 160 cm; Wt 60.8 kg
[2018-09-07 20:01] VITALS: Ht 160 cm; Wt 60.8 kg
[2018-09-07 21:18] LABS: CALCIUM 9.6 mg/dL (8.5-10.1); CARBON DIOXIDE 26.2 mmol/L (21-32); CHLORIDE SERUM 103 mmol/L (98-107); CREATININE SERUM 0.6 mg/dL (0.6-1.0); GFR1 > 60 mL/min; GLUCOSE SERUM 101 mg/dL (74-106); POTASSIUM SERUM 3.1 mmol/L (3.5-5.1); SODIUM SERUM 142 mmol/L (136-145)
[2018-09-07 21:23] LABS: AMPHETAMINE QUAL UR NONE DETECTED (See below)
[2018-09-07 21:23] LABS: ALBUMIN 3.4 g/dL (3.4-5.0); ALKALINE PHOSPHATASE 88 U/L (46-116); ALT/SGPT 23 U/L (14-59); AST/SGOT 14 U/L (15-37); BILIRUBIN TOTAL 0.77 mg/dL (0.20-1.00); TOTAL PROTEIN, SERUM 7.1 g/dL (6.4-8.2)
[2018-09-08 11:02] VITALS: BP 140/71
== END 2018-09-08 11:43 ==
LOC: ED 19:48
PROVIDERS: Specialist
DX: F41.8 Other specified anxiety disorders (principal); R45.851 Suicidal ideations; I10 Essential (primary) hypertension; G89.29 Other chronic pain; M54.6 Pain in thoracic spine; E78.00 Pure hypercholesterolemia, unspecified; I48.91 Unspecified atrial fibrillation; Z88.8 Allergy status to other drugs, medicaments and biological substances
CPT/HCPCS: G0480; J1885; J2270

== ENCOUNTER 2019-01-03 01:43 | Emergency (ER) | payer OTHER ==
[~2019-01-03] VITALS: Ht 160 cm; Wt 63.5 kg
[2019-01-03 01:49] VITALS: Ht 160 cm; Wt 63.5 kg
[2019-01-03 02:43] VITALS: BP 57/105
== END 2019-01-03 02:43 | disposition home or self-care (01) ==
LOC: ED 01:43
DX: S76.011A Strain of muscle, fascia and tendon of right hip, initial encounter (principal); I10 Essential (primary) hypertension; I49.9 Cardiac arrhythmia, unspecified; F32.9 Major depressive disorder, single episode, unspecified; F41.9 Anxiety disorder, unspecified; M54.41 Lumbago with sciatica, right side; W01.0XXA Fall on same level from slipping, tripping and stumbling without subsequent striking against object, initial encounter; Y93.89 Activity, other specified; Y92.89 Other specified places as the place of occurrence of the external cause; Y99.8 Other external cause status; Z88.8 Allergy status to other drugs, medicaments and biological substances
CPT/HCPCS: J1885; J2270; Q0092

== ENCOUNTER 2019-01-19 21:46 | Emergency (ER) | payer OTHER ==
[~2019-01-19] VITALS: Ht 160 cm; Wt 61.7 kg
[2019-01-19 21:51] VITALS: Ht 160 cm; Wt 61.7 kg
[2019-01-20 02:08] VITALS: BP 149/73
== END 2019-01-20 02:08 | disposition home or self-care (01) ==
LOC: ED 21:46
DX: M54.41 Lumbago with sciatica, right side (principal); I10 Essential (primary) hypertension; F41.9 Anxiety disorder, unspecified; F32.9 Major depressive disorder, single episode, unspecified; G89.29 Other chronic pain; E78.00 Pure hypercholesterolemia, unspecified; I48.91 Unspecified atrial fibrillation; M19.90 Unspecified osteoarthritis, unspecified site; Z90.710 Acquired absence of both cervix and uterus; Z90.49 Acquired absence of other specified parts of digestive tract; Z90.89 Acquired absence of other organs; Z98.890 Other specified postprocedural states; Z88.8 Allergy status to other drugs, medicaments and biological substances
CPT/HCPCS: J1100; J1885; J2270; J2405

== ENCOUNTER 2019-01-29 17:02 | Emergency (ER) | payer OTHER ==
[~2019-01-29] VITALS: Ht 160 cm; Wt 61.7 kg
[2019-01-29 17:17] VITALS: Ht 160 cm; Wt 61.7 kg
[2019-01-29 20:46] VITALS: BP 149/86
== END 2019-01-29 20:33 | disposition home or self-care (01) ==
LOC: ED 17:02
DX: M54.41 Lumbago with sciatica, right side (principal); N39.0 Urinary tract infection, site not specified; I49.9 Cardiac arrhythmia, unspecified; I10 Essential (primary) hypertension; E78.00 Pure hypercholesterolemia, unspecified; M19.90 Unspecified osteoarthritis, unspecified site; M10.9 Gout, unspecified; Z90.710 Acquired absence of both cervix and uterus; Z90.49 Acquired absence of other specified parts of digestive tract; Z90.89 Acquired absence of other organs; Z98.890 Other specified postprocedural states; Z88.8 Allergy status to other drugs, medicaments and biological substances
CPT/HCPCS: J1885; J2270

== ENCOUNTER 2019-02-07 16:25 | Emergency (ER) | payer OTHER ==
[~2019-02-07] VITALS: Ht 160 cm; Wt 62.1 kg
[2019-02-07 16:29] VITALS: BP 153/91
== END 2019-02-07 17:10 | disposition home or self-care (01) ==
LOC: ED 16:25
DX: M25.551 Pain in right hip (principal); G89.29 Other chronic pain; M54.9 Dorsalgia, unspecified; E78.00 Pure hypercholesterolemia, unspecified; Z98.890 Other specified postprocedural states; Z88.8 Allergy status to other drugs, medicaments and biological substances; Z88.6 Allergy status to analgesic agent
CPT/HCPCS: J1885

== ENCOUNTER 2019-02-20 23:15 | Emergency (ER) | payer OTHER ==
[~2019-02-20] VITALS: Ht 160 cm; Wt 61.7 kg
[2019-02-20 23:19] VITALS: Ht 160 cm; Wt 61.7 kg
[2019-02-21 01:17] LABS: BASOPHIL % 0.5 % (0-2); PLATELET COUNT 348 x10^3mcL (130-400)
[2019-02-21 01:18] LABS: RED CELL DISTRIBUTION WIDTH 16.7 % (11.5-14.5)
[2019-02-21 01:29] LABS: CALCIUM 9.1 mg/dL (8.5-10.1); CARBON DIOXIDE 30.2 mmol/L (21-32); CHLORIDE SERUM 104 mmol/L (98-107); CREATININE SERUM 0.7 mg/dL (0.6-1.0); GFR1 > 60 mL/min; GLUCOSE SERUM 93 mg/dL (74-106); POTASSIUM SERUM 3.7 mmol/L (3.5-5.1); SODIUM SERUM 139 mmol/L (136-145)
[2019-02-21 01:36] LABS: ALKALINE PHOSPHATASE 80 U/L (46-116); ALT/SGPT 15 U/L (14-59); AST/SGOT 13 U/L (15-37); BILIRUBIN TOTAL 0.3 mg/dL (0.20-1.00); LIPASE 309 IU/L (73-393); TOTAL PROTEIN, SERUM 6.8 g/dL (6.4-8.2)
[2019-02-21 01:59] LABS: ALBUMIN 3.1 g/dL (3.4-5.0)
[2019-02-21 03:07] VITALS: BP 157/95
== END 2019-02-21 03:07 | disposition home or self-care (01) ==
LOC: ED 23:15
PROVIDERS: Emergency Medicine
DX: R07.89 Other chest pain (principal); I10 Essential (primary) hypertension; E78.00 Pure hypercholesterolemia, unspecified; G89.29 Other chronic pain; M54.9 Dorsalgia, unspecified; Z98.890 Other specified postprocedural states; Z88.8 Allergy status to other drugs, medicaments and biological substances; Z88.5 Allergy status to narcotic agent
CPT/HCPCS: J2270; J3010; Q0092

== ENCOUNTER 2019-02-25 23:15 | Emergency (ER) | payer OTHER ==
[~2019-02-25] VITALS: Ht 160 cm; Wt 61.7 kg
[2019-02-26 00:18] VITALS: Ht 160 cm; Wt 61.7 kg
[2019-02-26 02:37] LABS: BASOPHIL % 0.4 % (0-2); PLATELET COUNT 306 x10^3mcL (130-400)
[2019-02-26 02:44] LABS: CALCIUM 9.2 mg/dL (8.5-10.1); CARBON DIOXIDE 28.6 mmol/L (21-32); CHLORIDE SERUM 103 mmol/L (98-107); CREATININE SERUM 0.5 mg/dL (0.6-1.0); GFR1 > 60 mL/min; GLUCOSE SERUM 97 mg/dL (74-106); POTASSIUM SERUM 3.3 mmol/L (3.5-5.1); SODIUM SERUM 137 mmol/L (136-145)
[2019-02-26 02:48] LABS: ALKALINE PHOSPHATASE 73 U/L (46-116); ALT/SGPT 17 U/L (14-59); AST/SGOT 15 U/L (15-37); BILIRUBIN TOTAL 0.6 mg/dL (0.20-1.00); LIPASE 169 IU/L (73-393); TOTAL PROTEIN, SERUM 6.8 g/dL (6.4-8.2)
[2019-02-26 02:52] LABS: ALBUMIN 3.3 g/dL (3.4-5.0)
[2019-02-26 06:00] VITALS: BP 163/83
== END 2019-02-26 06:00 | disposition home or self-care (01) ==
LOC: ED 23:15
PROVIDERS: Emergency Medicine
DX: K86.89 Other specified diseases of pancreas (principal); N39.0 Urinary tract infection, site not specified; G89.29 Other chronic pain; R10.9 Unspecified abdominal pain; E78.00 Pure hypercholesterolemia, unspecified; Z88.8 Allergy status to other drugs, medicaments and biological substances; Z88.5 Allergy status to narcotic agent; Z98.890 Other specified postprocedural states; Z90.49 Acquired absence of other specified parts of digestive tract; Z90.710 Acquired absence of both cervix and uterus
CPT/HCPCS: J1885; J2405; J3010

== ENCOUNTER 2019-04-12 13:07 | Emergency (ER) | payer OTHER ==
[~2019-04-12] VITALS: Ht 160 cm; Wt 66.2 kg
[2019-04-12 13:15] VITALS: Ht 160 cm; Wt 66.2 kg
[2019-04-12 15:59] VITALS: BP 152/100
== END 2019-04-12 15:10 | disposition home or self-care (01) ==
LOC: ED 13:07
DX: M10.9 Gout, unspecified (principal); M54.42 Lumbago with sciatica, left side; I10 Essential (primary) hypertension; I49.9 Cardiac arrhythmia, unspecified; E78.00 Pure hypercholesterolemia, unspecified; Z98.890 Other specified postprocedural states; Z88.5 Allergy status to narcotic agent; Z88.8 Allergy status to other drugs, medicaments and biological substances
CPT/HCPCS: J1885

== ENCOUNTER 2019-04-14 08:32 | Emergency (ER) | payer OTHER ==
[~2019-04-14] VITALS: Ht 160 cm; Wt 61.7 kg
[2019-04-14 08:42] VITALS: Ht 160 cm; Wt 61.7 kg
[2019-04-14 11:33] VITALS: BP 110/66
== END 2019-04-14 11:33 | disposition home or self-care (01) ==
LOC: ED 08:32
DX: G89.29 Other chronic pain (principal); M10.9 Gout, unspecified; I10 Essential (primary) hypertension; E78.00 Pure hypercholesterolemia, unspecified; I48.91 Unspecified atrial fibrillation; Z90.710 Acquired absence of both cervix and uterus; Z90.49 Acquired absence of other specified parts of digestive tract; Z90.89 Acquired absence of other organs; Z98.890 Other specified postprocedural states; Z88.5 Allergy status to narcotic agent; Z88.8 Allergy status to other drugs, medicaments and biological substances
CPT/HCPCS: J1885; J7512

== ENCOUNTER 2019-04-29 15:32 | Observation (INO) | payer OTHER ==
[~2019-04-29] VITALS: Ht 160 cm; Wt 62.6 kg
[2019-04-29 15:36] VITALS: Ht 160 cm; Wt 62.6 kg
[2019-04-29 17:27] LABS: BASOPHIL % 0.4 % (0-2); PLATELET COUNT 299 x10^3mcL (130-400)
[2019-04-29 17:28] LABS: RED CELL DISTRIBUTION WIDTH 19.4 % (11.5-14.5)
[2019-04-29 17:47] LABS: CALCIUM 9.3 mg/dL (8.5-10.1); CARBON DIOXIDE 29.4 mmol/L (21-32); CHLORIDE SERUM 105 mmol/L (98-107); CREATININE SERUM 0.6 mg/dL (0.6-1.0); GFR1 > 60 mL/min; GLUCOSE SERUM 91 mg/dL (74-106); POTASSIUM SERUM 3.7 mmol/L (3.5-5.1); SODIUM SERUM 137 mmol/L (136-145)
[2019-04-29 17:59] LABS: ALKALINE PHOSPHATASE 79 U/L (46-116); ALT/SGPT 14 U/L (14-59); AST/SGOT 16 U/L (15-37); BILIRUBIN TOTAL 0.51 mg/dL (0.20-1.00)
[2019-04-29 18:00] LABS: ALBUMIN 3.1 g/dL (3.4-5.0)
[2019-04-30 00:41] VITALS: BP 151/86
[2019-04-30 05:52] VITALS: BP 132/64
[2019-04-30 06:34] LABS: BASOPHIL % 0.7 % (0-2); PLATELET COUNT 281 x10^3mcL (130-400)
[2019-04-30 06:50] LABS: RED CELL DISTRIBUTION WIDTH 19.5 % (11.5-14.5)
[2019-04-30 07:02] LABS: ALKALINE PHOSPHATASE 68 U/L (46-116); ALT/SGPT 13 U/L (14-59); AST/SGOT 16 U/L (15-37); BILIRUBIN TOTAL 0.68 mg/dL (0.20-1.00); CALCIUM 9.7 mg/dL (8.5-10.1); CARBON DIOXIDE 29.8 mmol/L (21-32); CHLORIDE SERUM 107 mmol/L (98-107); CREATININE SERUM 0.6 mg/dL (0.6-1.0); GFR1 > 60 mL/min; GLUCOSE SERUM 92 mg/dL (74-106); POTASSIUM SERUM 3.6 mmol/L (3.5-5.1); SODIUM SERUM 139 mmol/L (136-145); TOTAL PROTEIN, SERUM 6.4 g/dL (6.4-8.2)
[2019-04-30 07:05] LABS: ALBUMIN 2.9 g/dL (3.4-5.0)
[2019-04-30 07:19] LABS: MAGNESIUM 1.5 mg/dL (1.8-2.4)
[2019-04-30 07:46] VITALS: BP 127/66
[2019-04-30 12:36] VITALS: BP 112/60
[2019-04-30 13:49] VITALS: BP 112/60
== END 2019-04-30 14:19 | disposition home or self-care (01) ==
LOC: ED 15:32 → DU 23:34
PROVIDERS: Emergency Medicine; ADMIT Internal Medicine Pulmonary Disease
DX: R07.89 Other chest pain (principal); G89.4 Chronic pain syndrome; F32.9 Major depressive disorder, single episode, unspecified; M10.9 Gout, unspecified; M54.30 Sciatica, unspecified side; I48.91 Unspecified atrial fibrillation; Z90.49 Acquired absence of other specified parts of digestive tract; Z90.710 Acquired absence of both cervix and uterus; Z98.890 Other specified postprocedural states; E83.42 Hypomagnesemia; Z23 Encounter for immunization
CPT/HCPCS: 83880; 90658; G0378; J1885; J2060; J2270

== ENCOUNTER 2019-06-12 10:57 | Emergency (ER) | payer OTHER ==
[~2019-06-12] VITALS: Ht 160 cm; Wt 66.2 kg
[2019-06-12 11:05] VITALS: Ht 160 cm; Wt 66.2 kg
[2019-06-12 13:58] VITALS: BP 118/47
== END 2019-06-12 12:58 | disposition home or self-care (01) ==
LOC: ED 10:57
DX: R10.816 Epigastric abdominal tenderness (principal); R19.7 Diarrhea, unspecified; R11.2 Nausea with vomiting, unspecified; I10 Essential (primary) hypertension; G89.29 Other chronic pain; I48.91 Unspecified atrial fibrillation; Z87.442 Personal history of urinary calculi; Z98.890 Other specified postprocedural states; Z88.8 Allergy status to other drugs, medicaments and biological substances
CPT/HCPCS: J2270; J7030

== ENCOUNTER 2019-09-14 19:37 | Observation (INO) | payer OTHER ==
[~2019-09-14] VITALS: Ht 160 cm; Wt 66.8 kg
[2019-09-14 19:54] VITALS: Ht 160 cm; Wt 66.8 kg
[2019-09-14 20:26] LABS: BASOPHIL % 0.5 % (0-2); PLATELET COUNT 297 x10^3mcL (130-400)
[2019-09-14 20:29] LABS: RED CELL DISTRIBUTION WIDTH 18.9 % (11.5-14.5)
[2019-09-14 20:44] LABS: ALKALINE PHOSPHATASE 84 U/L (46-116); ALT/SGPT 15 U/L (14-59); AST/SGOT 13 U/L (15-37); BILIRUBIN TOTAL 0.49 mg/dL (0.20-1.00); CALCIUM 8.4 mg/dL (8.5-10.1); CARBON DIOXIDE 26.9 mmol/L (21-32); CHLORIDE SERUM 102 mmol/L (98-107); CHOLESTEROL 167 mg/dL (<200); CHOLESTEROL/HDL RATIO 4.5; CREATININE SERUM 0.7 mg/dL (0.6-1.0); GFR1 > 60 mL/min; GLUCOSE SERUM 110 mg/dL (74-106); HDL CHOLESTEROL 37 mg/dL (40-60); LIPASE 62 IU/L (73-393); SODIUM SERUM 140 mmol/L (136-145); TRIGLYCERIDES 113 mg/dL (<150)
[2019-09-14 20:45] LABS: ALBUMIN 3.3 g/dL (3.4-5.0)
[2019-09-14 20:54] LABS: FREE T4 0.94 ng/dL (0.76-1.46); FREE THYROXINE INDEX 1.9 ug/dL (1.4-4.5); T3 TOTAL 0.92 ng/mL; T4(THYROXINE) 5.2 ug/dL (4.7-13.3)
[2019-09-14 23:44] LABS: UA SPECIFIC GRAVITY 1.025 (1.005-1.035); microscopic required? YES; urine erythrocyte NEGATIVE (NEGATIVE)
[2019-09-15 03:36] VITALS: BP 152/82
[2019-09-15 06:11] VITALS: BP 148/73
[2019-09-15 09:20] LABS: CALCIUM 8.8 mg/dL (8.5-10.1); CARBON DIOXIDE 23.8 mmol/L (21-32); CHLORIDE SERUM 106 mmol/L (98-107); CREATININE SERUM 0.5 mg/dL (0.6-1.0); GFR1 > 60 mL/min; GLUCOSE SERUM 119 mg/dL (74-106); POTASSIUM SERUM 3.6 mmol/L (3.5-5.1); SODIUM SERUM 140 mmol/L (136-145)
[2019-09-15 13:17] LABS: BASOPHIL % 0.8 % (0-2); PLATELET COUNT 294 x10^3mcL (130-400)
[2019-09-15 13:19] LABS: RED CELL DISTRIBUTION WIDTH 18.9 % (11.5-14.5)
[2019-09-15 13:53] VITALS: BP 151/76
[2019-09-15 17:49] VITALS: BP 153/85
[2019-09-15 20:29] VITALS: BP 154/74
[2019-09-16 05:35] VITALS: BP 164/89
[2019-09-16 07:18] LABS: ALKALINE PHOSPHATASE 70 U/L (46-116); ALT/SGPT 11 U/L (14-59); AST/SGOT 8 U/L (15-37); CALCIUM 8.7 mg/dL (8.5-10.1); CARBON DIOXIDE 28.2 mmol/L (21-32); CHLORIDE SERUM 104 mmol/L (98-107); CREATININE SERUM 0.7 mg/dL (0.6-1.0); GFR1 > 60 mL/min; GLUCOSE SERUM 108 mg/dL (74-106); SODIUM SERUM 141 mmol/L (136-145); TOTAL PROTEIN, SERUM 6.2 g/dL (6.4-8.2)
[2019-09-16 07:21] LABS: BASOPHIL % 0.5 % (0-2); PLATELET COUNT 296 x10^3mcL (130-400); RED CELL DISTRIBUTION WIDTH 19.8 % (11.5-14.5)
[2019-09-16 07:22] LABS: ALBUMIN 2.9 g/dL (3.4-5.0)
[2019-09-16 07:24] LABS: POTASSIUM SERUM 2.9 mmol/L (3.5-5.1)
[2019-09-16 08:23] VITALS: BP 169/89
[2019-09-16 12:02] VITALS: BP 150/72
[2019-09-16] MEDS ORDERED: PRI20 PO (12:02)
[2019-09-16] MEDS ORDERED: CEFUROXIME250 MG PO (12:03)
[2019-09-16 13:37] VITALS: BP 150/72
== END 2019-09-16 14:55 | disposition home or self-care (01) ==
LOC: ED 19:37 → MU 23:41
PROVIDERS: Specialist; ADMIT Internal Medicine; ATTEND Internal Medicine
DX: N39.0 Urinary tract infection, site not specified (principal); E87.6 Hypokalemia; I10 Essential (primary) hypertension
CPT/HCPCS: 83880; 84439; G0378; J0696; J1644; J1885; J2270; J2405; J3010; J3480; J3490; J7030; J7060; Q0092

== ENCOUNTER 2019-11-05 22:31 | Observation (INO) | payer OTHER ==
[~2019-11-05] VITALS: Ht 160 cm; Wt 64.9 kg
[~2019-11-05 22:31] MED LIST changes: +CEFUROXIME250 MG PO; +PRI20 PO
[2019-11-06 02:19] LABS: BASOPHIL % 0.7 % (0-2); PLATELET COUNT 271 x10^3mcL (130-400); RED CELL DISTRIBUTION WIDTH 17.2 % (11.5-14.5)
[2019-11-06] MEDS ORDERED: PLAVIX75 M1 PO (02:26)
[2019-11-06 02:31] LABS: CARBON DIOXIDE 27.8 mmol/L (21-32); CREATININE SERUM 1.2 mg/dL (0.6-1.0); POTASSIUM SERUM 3.9 mmol/L (3.5-5.1)
[2019-11-06 02:35] LABS: ALBUMIN 3.6 g/dL (3.4-5.0); BILIRUBIN TOTAL 0.59 mg/dL (0.20-1.00); TOTAL PROTEIN, SERUM 7.5 g/dL (6.4-8.2)
[2019-11-06 04:40] VITALS: BP 103/59
[2019-11-06 08:21] VITALS: BP 145/76
[2019-11-06 09:44] VITALS: BP 112/66
[2019-11-06 14:04] VITALS: BP 145/76
[2019-11-06 17:16] VITALS: BP 128/72
[2019-11-06 21:28] VITALS: BP 113/61
[2019-11-07 04:39] LABS: BASOPHIL % 1.3 % (0-2); PLATELET COUNT 219 x10^3mcL (130-400)
[2019-11-07 04:49] LABS: CALCIUM 9.3 mg/dL (8.5-10.1); CARBON DIOXIDE 25.5 mmol/L (21-32); CHLORIDE SERUM 104 mmol/L (98-107); CREATININE SERUM 0.7 mg/dL (0.6-1.0); GFR1 > 60 mL/min; GLUCOSE SERUM 163 mg/dL (74-106); POTASSIUM SERUM 4.3 mmol/L (3.5-5.1); SODIUM SERUM 137 mmol/L (136-145)
[2019-11-07 05:38] VITALS: BP 152/93
[2019-11-07 09:06] VITALS: BP 173/88
[2019-11-07 13:38] VITALS: BP 145/64
[2019-11-07 16:53] VITALS: BP 152/77
[2019-11-07 20:50] VITALS: BP 154/76
[2019-11-08 05:30] VITALS: BP 140/78
[2019-11-08 08:37] VITALS: BP 153/73
[2019-11-08 12:11] VITALS: BP 131/55
[2019-11-08 15:11] VITALS: BP 131/55
[2019-11-08 16:20] VITALS: BP 178/86
[2019-11-13] MEDS ORDERED: EFFEXOR XR150 MG PO (08:50)
[2019-11-13] MEDS ORDERED: VENLAFAXINE HYD50 MG PO (08:56)
== END 2019-11-08 18:55 | disposition home or self-care (01) ==
LOC: ED 22:31 → DU 11-06 03:52
PROVIDERS: Emergency Medicine; ADMIT Hospitalist; ATTEND Hospitalist
DX: J96.01 Acute respiratory failure with hypoxia (principal); N17.0 Acute kidney failure with tubular necrosis; I10 Essential (primary) hypertension; I48.91 Unspecified atrial fibrillation; E78.5 Hyperlipidemia, unspecified; M19.90 Unspecified osteoarthritis, unspecified site; M54.9 Dorsalgia, unspecified; G89.29 Other chronic pain; F41.8 Other specified anxiety disorders; Z20.828 Contact with and (suspected) exposure to other viral communicable diseases
CPT/HCPCS: 36600; 83880; G0378; J1100; J1170; J1644; J1885; J2060; J2920; J3475; J7030; J7613; J7644; Q0092; U0003-CS

== ENCOUNTER 2019-12-31 11:12 | Emergency (ER) | payer OTHER ==
[~2019-12-31 11:12] MED LIST changes: +EFFEXOR XR150 MG PO; +PLAVIX75 M1 PO; +VENLAFAXINE HYD50 MG PO
[2019-12-31 12:19] LABS: UA SPECIFIC GRAVITY 1.025 (1.005-1.035); microscopic required? YES; urine erythrocyte NEGATIVE (NEGATIVE)
[2019-12-31 13:23] LABS: ALBUMIN 3.5 g/dL (3.4-5.0); ALKALINE PHOSPHATASE 101 U/L (46-116); ALT/SGPT 16 U/L (14-59); AMYLASE 37 U/L (25-115); AST/SGOT 18 U/L (15-37); BILIRUBIN TOTAL 0.92 mg/dL (0.20-1.00); CALCIUM 8.7 mg/dL (8.5-10.1); CARBON DIOXIDE 30.6 mmol/L (21-32); CHLORIDE SERUM 105 mmol/L (98-107); CREATININE SERUM 0.6 mg/dL (0.6-1.0); GFR1 > 60 mL/min; GLUCOSE SERUM 119 mg/dL (74-106); LIPASE 138 IU/L (73-393); SODIUM SERUM 143 mmol/L (136-145); TOTAL PROTEIN, SERUM 7.2 g/dL (6.4-8.2)
[2019-12-31 13:25] LABS: POTASSIUM SERUM 2.8 mmol/L (3.5-5.1)
[2019-12-31 14:12] VITALS: BP 147/74
[2019-12-31 14:23] LABS: BASOPHIL % 0.3 % (0-2); PLATELET COUNT 254 x10^3mcL (130-400)
[2019-12-31 14:24] LABS: RED CELL DISTRIBUTION WIDTH 21.6 % (11.5-14.5)
== END 2019-12-31 14:03 | disposition home or self-care (01) ==
LOC: ED 11:12
PROVIDERS: Emergency Medicine
DX: N39.0 Urinary tract infection, site not specified (principal); E87.6 Hypokalemia; I10 Essential (primary) hypertension; I48.91 Unspecified atrial fibrillation; E78.00 Pure hypercholesterolemia, unspecified; M10.9 Gout, unspecified; Z98.890 Other specified postprocedural states; Z90.710 Acquired absence of both cervix and uterus; Z90.49 Acquired absence of other specified parts of digestive tract; Z90.89 Acquired absence of other organs; Z88.8 Allergy status to other drugs, medicaments and biological substances
CPT/HCPCS: J1885; Q0162

== ENCOUNTER 2020-01-01 17:48 | Emergency (ER) | payer OTHER ==
[~2020-01-01] VITALS: Ht 160 cm; Wt 66.2 kg
[2020-01-01 17:53] VITALS: Ht 160 cm; Wt 66.2 kg
[2020-01-01 18:54] LABS: BASOPHIL % 0.4 % (0-2); PLATELET COUNT 251 x10^3mcL (130-400)
[2020-01-01 18:56] LABS: RED CELL DISTRIBUTION WIDTH 21.9 % (11.5-14.5)
[2020-01-01 19:22] LABS: ALBUMIN 3.5 g/dL (3.4-5.0); ALKALINE PHOSPHATASE 102 U/L (46-116); ALT/SGPT 19 U/L (14-59); AST/SGOT 23 U/L (15-37); BILIRUBIN TOTAL 0.83 mg/dL (0.20-1.00); CALCIUM 8.8 mg/dL (8.5-10.1); CARBON DIOXIDE 30.7 mmol/L (21-32); CHLORIDE SERUM 105 mmol/L (98-107); CREATININE SERUM 0.7 mg/dL (0.6-1.0); GFR1 > 60 mL/min; GLUCOSE SERUM 101 mg/dL (74-106); SODIUM SERUM 142 mmol/L (136-145); TOTAL PROTEIN, SERUM 7.3 g/dL (6.4-8.2)
[2020-01-01 19:26] LABS: rbc morphology (normal/abnorm) ABNORMAL (NORMAL)
[2020-01-01 21:08] VITALS: BP 159/96
== END 2020-01-01 21:08 | disposition home or self-care (01) ==
LOC: ED 17:48
PROVIDERS: Student in an Organized Health Care Education/Training Program
DX: F11.23 Opioid dependence with withdrawal (principal); I10 Essential (primary) hypertension; G89.29 Other chronic pain; I48.91 Unspecified atrial fibrillation; M10.9 Gout, unspecified; Z90.89 Acquired absence of other organs; Z90.49 Acquired absence of other specified parts of digestive tract; Z90.710 Acquired absence of both cervix and uterus; Z88.8 Allergy status to other drugs, medicaments and biological substances
CPT/HCPCS: Q0092; Q0163

== ENCOUNTER 2020-01-14 21:07 | Emergency (ER) | payer OTHER ==
[~2020-01-14] VITALS: Ht 160 cm; Wt 66.2 kg
[2020-01-14 21:09] VITALS: Ht 160 cm; Wt 66.2 kg
[2020-01-14 22:27] LABS: BASOPHIL % 0.4 % (0-2)
[2020-01-14 22:30] LABS: PLATELET COUNT 492 x10^3mcL (130-400)
[2020-01-14 22:40] LABS: rbc morphology (normal/abnorm) ABNORMAL (NORMAL)
[2020-01-14 23:04] LABS: CALCIUM 9.6 mg/dL (8.5-10.1); CHLORIDE SERUM 101 mmol/L (98-107); CREATININE SERUM 0.6 mg/dL (0.6-1.0); GFR1 > 60 mL/min; GLUCOSE SERUM 108 mg/dL (74-106); POTASSIUM SERUM 3.1 mmol/L (3.5-5.1); SODIUM SERUM 138 mmol/L (136-145)
[2020-01-14 23:08] LABS: ALBUMIN 3.5 g/dL (3.4-5.0); ALKALINE PHOSPHATASE 119 U/L (46-116); ALT/SGPT 16 U/L (14-59); AST/SGOT 15 U/L (15-37); BILIRUBIN TOTAL 0.57 mg/dL (0.20-1.00); TOTAL PROTEIN, SERUM 7.9 g/dL (6.4-8.2)
[2020-01-15 02:25] LABS: AMPHETAMINE QUAL UR NONE DETECTED (See below)
[2020-01-15 07:10] VITALS: BP 139/69
== END 2020-01-15 07:10 | disposition short-term general hospital (02) ==
LOC: ED 21:07
PROVIDERS: Emergency Medicine
DX: F32.9 Major depressive disorder, single episode, unspecified (principal); R45.851 Suicidal ideations; E87.6 Hypokalemia; Z20.828 Contact with and (suspected) exposure to other viral communicable diseases
CPT/HCPCS: G0480; J2060; J7030; Q0163; U0003

== ENCOUNTER 2020-02-15 23:03 | Emergency (ER) | payer OTHER ==
[~2020-02-15] VITALS: Ht 160 cm; Wt 59.4 kg
[2020-02-15 23:24] VITALS: Ht 160 cm; Wt 59.4 kg
[2020-02-16 02:53] LABS: CARBON DIOXIDE 24.8 mmol/L (21-32); CHLORIDE SERUM 104 mmol/L (98-107); CREATININE SERUM 0.8 mg/dL (0.6-1.0); GLUCOSE SERUM 124 mg/dL (74-106); POTASSIUM SERUM 3.4 mmol/L (3.5-5.1); SODIUM SERUM 142 mmol/L (136-145)
[2020-02-16 02:54] LABS: CALCIUM 9.4 mg/dL (8.5-10.1); GFR1 > 60 mL/min
[2020-02-16 02:58] LABS: ALBUMIN 3.6 g/dL (3.4-5.0); ALKALINE PHOSPHATASE 116 U/L (46-116); ALT/SGPT 14 U/L (14-59); AST/SGOT 15 U/L (15-37); BILIRUBIN TOTAL 1.02 mg/dL (0.20-1.00); TOTAL PROTEIN, SERUM 7.7 g/dL (6.4-8.2)
[2020-02-16 03:09] LABS: BASOPHIL % 0.8 % (0.2-1.3); PLATELET COUNT 309 x10^3mcL (179-408)
[2020-02-16 03:11] LABS: RED CELL DISTRIBUTION WIDTH 22.3 % (12.3-17.7)
[2020-02-16 03:25] VITALS: BP 143/70
== END 2020-02-16 03:25 | disposition home or self-care (01) ==
LOC: ED 23:03
PROVIDERS: Student in an Organized Health Care Education/Training Program
DX: R07.89 Other chest pain (principal); I10 Essential (primary) hypertension; E78.00 Pure hypercholesterolemia, unspecified; I48.91 Unspecified atrial fibrillation; M10.9 Gout, unspecified; M19.90 Unspecified osteoarthritis, unspecified site; Z65.8 Other specified problems related to psychosocial circumstances; Z98.890 Other specified postprocedural states; Z90.710 Acquired absence of both cervix and uterus; Z90.49 Acquired absence of other specified parts of digestive tract; Z90.89 Acquired absence of other organs; Z88.8 Allergy status to other drugs, medicaments and biological substances
CPT/HCPCS: 83880

== ENCOUNTER 2020-04-14 20:10 | Observation (INO) | payer OTHER ==
[~2020-04-14] VITALS: Ht 160 cm; Wt 71.7 kg
--- NOTE | 2020-04-14 20:23 | NUR ---
DR. PAULINO BEDSIDE FOR MSE
[2020-04-14 20:29] VITALS: Ht 160 cm; Wt 71.7 kg
--- NOTE | 2020-04-14 20:37 | NUR ---
PT BIBA C/O OF LEFT FLANK AND NECK PAIN FROM MECHANICAL FALL IN BATHROOM AT HOME, PT REPORTS 10/10 CONSTANT ACHE IN LEFT FLANK AND NECK THAT IS NON-RADIATING, NO PALLIATION, PROVOKED WITH MOVEMENT, +PMSCs IN ALL EXTREMITIES, PT DENIES PAIN IN ALL EXTREMITIES, HEAD, AND HIP, -LOC, PT IS AAO TO PERSON, PLACE, TIME, AND PURPOSE, ON FULL COMMUNICATIONS EQUIPMENT OPERATOR, RESP SHALLOW REALTED TO 10/10 PAIN, PT STATES "I FEEL LIKE MY SIDE IS SPASMING, IT HURTS," BED IN LOW POSITION AND LOCKED, BOTH SIDE RAILS UP, CALL LIGHT WITHIN REACH, NO DEFORMITIES, CONTUSIONS, OR CREPITUS NOTED IN LEFT FLANK, LEFT NECK, OR UPPER AND LOWER EXTREMITIES. .
--- NOTE | 2020-04-14 20:58 | NUR ---
PT TAKEN TO CT SCAN
--- NOTE | 2020-04-14 21:08 | NUR ---
PT RETURN FROM CT SCAN
[2020-04-14 23:57] LABS: BASOPHIL % 0.6 % (0.2-1.3); PLATELET COUNT 300 x10^3mcL (179-408)
[2020-04-14 23:58] LABS: RED CELL DISTRIBUTION WIDTH 18.7 % (12.3-17.7)
[2020-04-15 00:23] LABS: CALCIUM 10.8 mg/dL (8.5-10.1); CARBON DIOXIDE 31.5 mmol/L (21-32); CHLORIDE SERUM 97 mmol/L (98-107); CREATININE SERUM 0.6 mg/dL (0.6-1.0); GFR1 > 60 mL/min; GLUCOSE SERUM 129 mg/dL (74-106); POTASSIUM SERUM 3.7 mmol/L (3.5-5.1); SODIUM SERUM 129 mmol/L (136-145)
[2020-04-15 00:25] LABS: ALBUMIN 3.6 g/dL (3.4-5.0); ALKALINE PHOSPHATASE 97 U/L (46-116); ALT/SGPT 23 U/L (14-59); AST/SGOT 21 U/L (15-37); BILIRUBIN TOTAL 0.7 mg/dL (0.20-1.00); TOTAL PROTEIN, SERUM 7.1 g/dL (6.4-8.2)
[2020-04-15] MEDS ORDERED: COREG3.125 MG PO (00:37)
--- NOTE | 2020-04-15 01:06 | NUR ---
REPORT GIVEN TO KEVIN CERDA FOR PT ROOM 256B
[2020-04-15 01:43] VITALS: BP 147/83
--- NOTE | 2020-04-15 02:33 | NUR ---
RECEIVED PT FROM ED NURSE. PT CAME IN FOR LEFT LATERAL CHEST PAIN S/P FALL AT HOME. PT LIVES IN AN ASSISSTED LIVING. PT WAS ADMITTED FOR LEFT RIB FRACTURES TO RIBS 8-10. PT IS ALERT AND ORIENTED X4. PT IS ON TELE #27 NRS. PT IS CURRENTLY ON 2L NC. PT HAS SHALLOWING BREATHING DUE TO PAIN IN RIBS. PTS O2SAT IS 99%. PT HAS IV IN RFA 22G. IV IS CURRENTLY INFUSING NS @150ML/HR. PTS SKIN IS INTACT. UPON ASSESSMENT PT HAD COMPLAINTS OF PAIN 08/02. PT HAD ALREADY RECIEVED X1 TAB OF NORCO 5 IN ED @0041. REPOSITIONED PT TO ASSIST WITH PAIN. PT REFUSED AVAILABLE ADVIL AND SAID SHE WAS GOING TO TRY AND SLEEP AND WOULD CALL IF PAIN BECAME WORSE. BED IN LOWEST POSITION. 2 SIDE RAILS UP. CALL LIGHT WITHIN REACH. WILL CONTINUE TO MONITOR.
[2020-04-15 05:56] VITALS: BP 137/73
--- NOTE | 2020-04-15 06:39 | NUR ---
PT SLEPT THROUGH THE REST OF THE NIGHT WITHOUT ANY COMPLAINTS. PTS IV IN RFA INFILTRATED. D/C IV TO RFA. REPLACED WITH IV IN RIGHT WRIST 22G. IV INFUSING WELL. PT IS A HARD STICK. PT IS ON 2L NC O2SAT 99%. PT HAD COMPLAINTS OF PAIN 7/10 IN RIBS ON LEFT SIDE. PROVIDED PT WITH NORCO 5/325 X1 DOSE. NO ACUTE DISTRESS NOTED AT THIS TIME. ALL PTS CONCERNS ADDRESSED. BED IN LOWEST POSITION. 2 SIDE RAILS UP. CALL LIGHT WITHIN REACH. WILL ENDORSE PT CARE TO DAY SHIFT RN.
--- NOTE | 2020-04-15 08:09 | NUR ---
RECEIVED REPORT FROM RADIAL ARM SAW OPERATOR NURSE. PATIENT IN STABLE CONDITION. NAD. SLEEPING. BED IN LOWEST POSITION.CALL LIGHT WITHIN REACH.
[2020-04-15 08:25] VITALS: BP 168/80
[2020-04-15 12:05] VITALS: BP 166/72
--- NOTE | 2020-04-15 12:35 | NUR ---
PATIENT IS SLEEPING IN BED. CALM AND NAD. NO RESPIRATORY DISTRESS NOTED. CALL LIGHT WITHIN REACH. BED IN LOWEST POSITION.
[2020-04-15 16:00] VITALS: BP 135/60
--- NOTE | 2020-04-15 17:25 | NUR ---
S/W DR. AMBROCIO REGARDING PATIENTS SEVERE PAIN LEVEL 10/10 ON LEFT FRACTURED RIB LOCATION. MD PRESCRIBED OVER THE PHONE ORDER WITH VERBAL READ BACK OF MORPHINE 2MG IVP Q 4 H PRN FOR SEVERE PAIN 7-10.
[2020-04-15 18:26] LABS: CALCIUM 11.1 mg/dL (8.5-10.1); CARBON DIOXIDE 31.4 mmol/L (21-32); CHLORIDE SERUM 96 mmol/L (98-107); CREATININE SERUM 0.5 mg/dL (0.6-1.0); GFR1 > 60 mL/min; GLUCOSE SERUM 105 mg/dL (74-106); POTASSIUM SERUM 3.9 mmol/L (3.5-5.1); SODIUM SERUM 131 mmol/L (136-145)
--- NOTE | 2020-04-15 18:47 | NUR ---
PATIENTS IV SITE INFILTRATED. STOPPED IVINFUSION. ASSESSED SITE. D/C IV AND REATTEMPTED IV INSERTION ON LEFT A/C WITH 22 G.NO BLOOD RETURN UNSUCCESSFUL.
--- NOTE | 2020-04-15 18:55 | NUR ---
PATIENTS PAIN LEVEL IS STILL 10/10 AFTER MORPHINE ADMINISTRATION. OFFERED TO REPOSITION PATIENT FOR COMFORT AND DECREASE PAIN LEVEL REPOSITIONED TO RIGHT SIDE WITH PILLOW SUPPORT AND ICE PACKS ON LEFT AFFECTED AREA. WILL REPORT TO NOC SHIFT NURSE.PATIENT ENCOURAGED NOT TO MAKE FAST MOVEMENTS WITH EXACERBATE PAIN
[2020-04-15 19:58] VITALS: BP 155/74
--- NOTE | 2020-04-15 20:59 | NUR ---
2000: ASSUMED CARE OF PATIENT. NO ACUTE DISTESS NOTED. PATIENT APPEARS ANXIOUS. C/O PAIN. DISCUSSED PLAN OF CARE, PATIENT IN AGREEMENT. NO IV ACESS AT THIS TIME. NON-PHARMACOLOGICAL MEASURES TO DECRASE PAIN DISCUSSED. PATIENT VERBALIZE UNDERSTANDING. WILL MEDICATE FOR PAIN AND ANXIETY PER ORDERS
--- NOTE | 2020-04-15 22:41 | NUR ---
NEW IV STARTED TO RIGHT UPPER ARM 22G. PATIENT REQUESTING FOR DILAUDID. REPORTS MORPHINE MENDOZA HER VEINS. PATIENT DOES NOT WANT TO TAKE THE MORPHINE AT THIS TIME, REQUESTING CALL TO DOCTOR FOR DILAUDID. NOTIFIED OF PATIENTS REQUEST FOR DILAUDID. DR. AMBROCIO RETURNED CALL, NO NEW ORDERS OBTAINED AT THIS TIME. STATES WILL KEEP THE PAIN MEDICATIONS ORDERED. WILL CONTINUE TO MONITOR.
--- NOTE | 2020-04-16 00:52 | NUR ---
EFFEXOR NOT AVAILABLE ON THE FLOOR DURING THE SCHEDULED ADMIN TIME. PHARMACY NOTIFIED. MEDICATION ADMIN AT 0035
[2020-04-16 06:25] VITALS: BP 162/88
--- NOTE | 2020-04-16 06:26 | NUR ---
PATIENT REMAIN STABLE. NO ACUTE DISTRESS NOTED.
[2020-04-16 06:44] LABS: BASOPHIL % 0.6 % (0.2-1.3); PLATELET COUNT 267 x10^3mcL (179-408)
[2020-04-16 06:58] LABS: RED CELL DISTRIBUTION WIDTH 18.9 % (12.3-17.7)
--- NOTE | 2020-04-16 07:30 | NUR ---
Pt is awake and laying in bed. Pt is complaining of 10/10 pain in her right rib area. Pt denies chest pain. Pt is speaking in complete sentences with a grimace on her face. Pt is in a lot of pain. Pt denies chest pain. Safety will be maintained with bed in low position, wheels locked, call light with in reach. Will continue to monitor and assess as needed.
[2020-04-16 07:50] LABS: CALCIUM 8.8 mg/dL (8.5-10.1); CARBON DIOXIDE 29.3 mmol/L (21-32); CHLORIDE SERUM 100 mmol/L (98-107); CREATININE SERUM 0.5 mg/dL (0.6-1.0); GFR1 > 60 mL/min; GLUCOSE SERUM 106 mg/dL (74-106); POTASSIUM SERUM 3.6 mmol/L (3.5-5.1); SODIUM SERUM 138 mmol/L (136-145)
[2020-04-16 08:21] VITALS: BP 173/86
[2020-04-16 11:43] VITALS: BP 122/77
[2020-04-16 14:53] LABS: PLATELET COUNT 293 x10^3mcL (130-400); RED CELL DISTRIBUTION WIDTH 18.6 % (11.5-14.5)
[2020-04-16 14:54] LABS: BASOPHIL % 0.5 % (0-2)
[2020-04-16 17:20] VITALS: BP 169/82
[2020-04-16 20:28] VITALS: BP 198/98
--- NOTE | 2020-04-16 20:57 | NUR ---
2000: ASSUMED CARE OF PATIENT. NO ACUTE DISTRESS NOTED. PATIENT NOTED TO BE WALKING TO THE BATHROOM WITHOUT DISTRESS. C/O PAIN. WILL CONTINUE TO MONITOR.
--- NOTE | 2020-04-16 22:38 | NUR ---
PATIENT'S SON ANT UPDATED ON PLAN OF CARE. VERBALIZE UNDERSTANDING.
--- NOTE | 2020-04-17 05:39 | NUR ---
NO ACUTE DISTRESS NOTED. PATIENT RESTING AT THIS TIME. WILL CONTINUE TO MONITOR.
[2020-04-17 07:33] LABS: BASOPHIL % 0.7 % (0.2-1.3); PLATELET COUNT 276 x10^3mcL (179-408)
--- NOTE | 2020-04-17 07:45 | NUR ---
Pt is awake and speaking in complete sentences. Pt states that she was unable to get any sleep because she is in so much pain. Pt denies chest pain; only rib pain. Pt was encouraged to utilize a SNF d/t the multiple falls at home recently. Pt agreed that a SNF would be safer for her. Pt would like pain meds. Will talk to provider about the pt agreeing to go to a SNF. Safety will be maintained with upper siderails up, bed in low position, wheels locked and non-slip socks on. Call light is within reach. Will continue to monitor and assess as needed.
[2020-04-17 07:47] LABS: RED CELL DISTRIBUTION WIDTH 19.2 % (12.3-17.7)
[2020-04-17 08:11] LABS: CALCIUM 9.1 mg/dL (8.5-10.1); CARBON DIOXIDE 28.7 mmol/L (21-32); CHLORIDE SERUM 98 mmol/L (98-107); CREATININE SERUM 0.4 mg/dL (0.6-1.0); GFR1 > 60 mL/min; GLUCOSE SERUM 112 mg/dL (74-106); POTASSIUM SERUM 3.7 mmol/L (3.5-5.1); SODIUM SERUM 136 mmol/L (136-145)
[2020-04-17 09:15] VITALS: BP 174/98
[2020-04-17 12:18] VITALS: BP 173/85
[2020-04-17 14:37] VITALS: BP 173/85
[2020-04-17 15:51] VITALS: BP 163/88
--- NOTE | 2020-04-17 16:30 | NUR ---
Dr. Tolbert called about pt's BP of 178/84. Dr. Tolbert ordered BP medications, orders placed.
[2020-04-17 16:57] VITALS: BP 159/98
[2020-04-17 17:43] VITALS: BP 160/85
--- NOTE | 2020-04-17 18:33 | NUR ---
Nurse to nurse report was given to Margaret at [facility] at this time.
--- NOTE | 2020-04-17 18:52 | NUR ---
Transport came and picked the pt up. Pt is AOX4 with moderate c/o pain. Pt's IV was removed, catheter tip is intact. Pt tolerated the removal well. Bandage applied. Tele was DC'c and transport left at this time.
== END 2020-04-17 19:02 ==
LOC: ED 20:10 → DU 22:52
PROVIDERS: Specialist; ADMIT Internal Medicine; ATTEND Internal Medicine
DX: S22.42XA Multiple fractures of ribs, left side, initial encounter for closed fracture (principal); I10 Essential (primary) hypertension; I48.0 Paroxysmal atrial fibrillation; M54.9 Dorsalgia, unspecified; Z20.822 Contact with and (suspected) exposure to COVID-19; G89.29 Other chronic pain; X58.XXXA Exposure to other specified factors, initial encounter; Y92.89 Other specified places as the place of occurrence of the external cause; Y93.89 Activity, other specified; Y99.8 Other external cause status
CPT/HCPCS: 97530-GP; G0378; J1885; J2270; J2405; J7030; Q0162; U0003